=== PATIENT | male | born 1995 | race Two or more races ===

== ENCOUNTER 2022-08-27 12:58 | Emergency (ER) | payer MEDICAID, OTHER ==
[~2022-08-27] VITALS: Ht 175.3 cm; Wt 100.0 kg
[2022-08-27 14:16] VITALS: BP 115/74
== END 2022-08-27 17:12 | disposition left against medical advice (07) ==
LOC: ER 12:58 → EDBD 12:58 → ER 17:12
DX: M54.2 Cervicalgia (principal); M54.50 Low back pain, unspecified; M79.605 Pain in left leg; Z53.21 Procedure and treatment not carried out due to patient leaving prior to being seen by health care provider; V89.2XXA Person injured in unspecified motor-vehicle accident, traffic, initial encounter; Y93.89 Activity, other specified; Y92.89 Other specified places as the place of occurrence of the external cause; Y99.8 Other external cause status